=== PATIENT | male | born 1965 | race Caucasian/White ===

== ENCOUNTER → 2018-01-25 08:50 | Outpatient (CLI) | payer BC, SELFPAY ==
[2018-01-25 12:47] LABS: Absolute Lymphocyte Count 1.44 X10^3/ul (0.83-4.51); Absolute Neutrophil Count 2.7 X10^3/uL (2.0-7.7); Basophil# 0.01 X10^3/uL; Basophil% 0.2 % (0-1); Eosinophil# 0.34 X10^3/uL; Eosinophils% 6.8 % (0-5); Hematocrit 49.7 % (40-54); Hemoglobin 16.9 g/dl (13.0-16.5); Lymphocyte # 1.44 X10^3/ul (4.0); Lymphocyte % 28.8 % (19-41); Mean Corpuscular Hgb 32.6 pg (27.0-32.0); Mean Corpuscular Volume 95.9 fL (80-94); Monocyte# 0.51 X10^3/uL; Monocyte% 10.2 % (0-10); Neutrophil # 2.69 X10^3/uL (2.7-7.7); Neutrophil % 53.8 % (47-70); POSITIVE COUNT NO; POSITIVE DIFFERENTIAL NO; POSITIVE MORPHOLOGY NO; Platelet Count 145 K/mm3 (150-450); RBC Distribution Width CV 13.4 % (11.6-14.6); RBC Distribution Width SD 46.7 fl (35.1-43.9); Red Blood Count 5.18 M/mm3 (4.6-6.2)
[2018-01-25 13:11] LABS: ALB/GLOB Ratio 1.3 RATIO (0.9-2.4); AST(SGOT) 44 U/L (15-37); Alanine Aminotransfer ALT/SGPT 60 U/L (16-61); Albumin, Serum 3.9 g/dL (3.2-5.0); Alkaline Phosphatase 59 U/L (45-117); Anion Gap 9 (5-15); BUN 24 mg/dL (7-18); BUN/Creat Ratio 21.4 RATIO (10-20); Calcium,Total 8.9 mg/dL (8.5-10.1); Chloride 106 mmol/L (98-107); Creatinine, Serum 1.12 mg/dL (0.70-1.30); EST Glomerular Filtration Rate 72 mL/min (>60); Est Glom Filt Rate - Afr Amer 88 mL/min (>60); Glucose 96 mg/dL (74-106); Potassium 4.8 mmol/L (3.5-5.1); Protein, Total 6.9 g/dL (6.4-8.2); Sodium Level 140 mmol/L (136-145)
[2018-01-26 08:47] LABS: Hep C Antibodies <0.1 s/co ratio (0.0-0.9)
== END ==
PROVIDERS: Family Provider Family Medicine Geriatric Medicine; PCP Family Medicine Geriatric Medicine; Visit Provider Family Medicine Geriatric Medicine
DX: E23.6 Other disorders of pituitary gland (principal); R53.83 Other fatigue; Z12.5 Encounter for screening for malignant neoplasm of prostate; Z13.89 Encounter for screening for other disorder
CPT/HCPCS: 36415; 80053; 84403; 84443; 85025; 86803

== ENCOUNTER → 2019-02-21 | Outpatient (CLI) | payer BC, SELFPAY ==
[2018-08-15 12:12] VITALS: BMI 28.7
[2019-02-21 12:49] LABS: Absolute Lymphocyte Count 1.03 X10^3/uL (0.83-4.51); Absolute Neutrophil Count 2.5 X10^3/uL (2.0-7.7); Basophil# 0.04 X10^3/uL; Basophil% 0.9 % (0-1); Eosinophil# 0.31 X10^3/uL; Eosinophils% 7.2 % (0-5); Hematocrit 49.4 % (40-54); Lymphocyte # 1.03 X10^3/ul (4.0); Mean Corp Hgb Conc 34.4 g/dL (32-36); Mean Corpuscular Hgb 33.3 pg (27.0-32.0); Mean Corpuscular Volume 96.7 fL (80-94); Mean Platelet Vol. 10.9 fl (6.2-12.0); Monocyte# 0.42 X10^3/uL; Monocyte% 9.8 % (0-10); NRBC Flagged by Analyzer 0 % (0-5); Neutrophil # 2.48 X10^3/uL (2.7-7.7); Neutrophil % 57.9 % (47-70); Platelet Count 153 K/mm3 (150-450); RBC Distribution Width CV 13.3 % (11.6-14.6); RBC Distribution Width SD 47.8 fl (35.1-43.9); Red Blood Count 5.11 M/mm3 (4.6-6.2); White Blood Count 4.3 K/mm3 (4.4-11.0)
[2019-02-21 13:09] LABS: ALB/GLOB Ratio 1.4 RATIO (0.9-2.4); AST(SGOT) 63 U/L (15-37); Alanine Aminotransfer ALT/SGPT 67 U/L (16-61); Albumin, Serum 3.9 g/dL (3.2-5.0); Alkaline Phosphatase 55 U/L (45-117); Anion Gap 6 (5-15); BUN 21 mg/dL (7-18); BUN/Creat Ratio 23.6 RATIO (10-20); Calcium,Total 9.2 mg/dL (8.5-10.1); Chloride 109 mmol/L (98-107); Creatinine, Serum 0.89 mg/dL (0.70-1.30); EST Glomerular Filtration Rate 94 mL/min (>60); Est Glom Filt Rate - Afr Amer 114 mL/min (>60); Globulin 2.7 g/dL (2.2-4.2); Glucose 118 mg/dL (74-106); PSA,Total - Annual Screen 1.65 ng/mL (0.00-4.00); Potassium 4.3 mmol/L (3.5-5.1); Protein, Total 6.6 g/dL (6.4-8.2); Sodium Level 139 mmol/L (136-145); Thyroid Stim Hormone (TSH) 2.44 uIU/mL (0.358-3.74)
== END | disposition home or self-care (01) ==
LOC: POLAB3 08:39
PROVIDERS: Family Provider Family Medicine Geriatric Medicine; PCP Family Medicine Geriatric Medicine; Visit Provider Family Medicine Geriatric Medicine
DX: F52.8 Other sexual dysfunction not due to a substance or known physiological condition (principal); R53.83 Other fatigue; Z12.5 Encounter for screening for malignant neoplasm of prostate
CPT/HCPCS: 36415; 80053; 84153; 84403; 84443; 85025; G0103

== ENCOUNTER → 2019-03-08 09:51 | Outpatient (CLI) | payer BC, SELFPAY ==
[2018-08-15 12:12] VITALS: BMI 28.7
--- NOTE | 2019-03-08 09:58 | US_ITS ---
HISTORY: RUQ PAIN/ elevated lft's TECHNIQUE: Nava scale and color doppler imaging was performed of the pancreas, liver, and gallbladder. COMPARISON: None FINDINGS: # of images incl. paperwork: 119 The liver is enlarged and coarse in echotexture.. No gallstones, gallbladder wall thickening or biliary dilatation. Gallbladder wall measures 3 mm. Common bile duct measures 4 mm. No tenderness upon insonation the gallbladder. Visualized pancreas is normal in appearance. Right kidney is normal in size and appearance. Visualized abdominal aorta has normal caliber. IVC is patent. Hepatopedal flow is present within the central portal vein. US/Abdomen Limited IMPRESSION: Normal Right upper quadrant ultrasound. at 0093 Reported and signed by: Edmar Mccrary MD Electronically Signed: Edmar Mccrary MD at 23:51 EDT Tel , Service support ,
== END ==
PROVIDERS: Family Provider Family Medicine Geriatric Medicine; PCP Family Medicine Geriatric Medicine; Referring Provider Family Medicine Geriatric Medicine; Visit Provider Family Medicine Geriatric Medicine
DX: R94.5 Abnormal results of liver function studies (principal)
CPT/HCPCS: 76705

== ENCOUNTER → 2019-04-04 | Outpatient (CLI) | payer BC, SELFPAY ==
[2018-08-15 12:12] VITALS: BMI 28.7
[2019-04-04 18:29] LABS: ALB/GLOB Ratio 1.5 RATIO (0.9-2.4); AST(SGOT) 95 U/L (15-37); Alanine Aminotransfer ALT/SGPT 83 U/L (16-61); Albumin, Serum 3.7 g/dL (3.2-5.0); Alkaline Phosphatase 48 U/L (45-117); Anion Gap 9 (5-15); BUN 18 mg/dL (7-18); BUN/Creat Ratio 22.4 RATIO (10-20); Calcium,Total 8.7 mg/dL (8.5-10.1); Chloride 109 mmol/L (98-107); EST Glomerular Filtration Rate 106 mL/min (>60); Est Glom Filt Rate - Afr Amer 128 mL/min (>60); Globulin 2.5 g/dL (2.2-4.2); Glucose 87 mg/dL (74-106); Protein, Total 6.2 g/dL (6.4-8.2); Sodium Level 144 mmol/L (136-145)
== END | disposition home or self-care (01) ==
LOC: LAB.FUTURE 13:25
PROVIDERS: Family Provider Family Medicine Geriatric Medicine; PCP Family Medicine Geriatric Medicine; Visit Provider Family Medicine Geriatric Medicine
DX: R74.8 Abnormal levels of other serum enzymes (principal)
CPT/HCPCS: 36415; 80053

== ENCOUNTER → 2020-02-27 | Outpatient (CLI) | payer BC, SELFPAY ==
[2018-08-15 12:12] VITALS: BMI 28.7
[2020-02-27 12:42] LABS: Absolute Lymphocyte Count 1.23 X10^3/uL (0.83-4.51); Absolute Neutrophil Count 3.7 X10^3/uL (2.0-7.7); Basophil# 0.03 X10^3/uL; Basophil% 0.5 % (0-1); Eosinophils% 3.5 % (0-5); Hematocrit 49.3 % (40-54); Hemoglobin 16.7 g/dL (13.0-16.5); Lymphocyte # 1.23 X10^3/ul (4.0); Lymphocyte % 21.5 % (19-41); Mean Corp Hgb Conc 33.9 g/dL (32-36); Mean Corpuscular Volume 97.4 fL (80-94); Mean Platelet Vol. 10.7 fl (6.2-12.0); Monocyte# 0.56 X10^3/uL; Monocyte% 9.8 % (0-10); NRBC Flagged by Analyzer 0 % (0-5); Neutrophil # 3.68 X10^3/uL (2.7-7.7); Neutrophil % 64.4 % (47-70); Platelet Count 176 K/mm3 (150-450); RBC Distribution Width CV 14.3 % (11.6-14.6); RBC Distribution Width SD 50.8 fl (35.1-43.9); Red Blood Count 5.06 M/mm3 (4.6-6.2); White Blood Count 5.7 K/mm3 (4.4-11.0)
[2020-02-27 13:17] LABS: ALB/GLOB Ratio 1.4 RATIO (0.9-2.4); AST(SGOT) 78 U/L (15-37); Alanine Aminotransfer ALT/SGPT 85 U/L (16-61); Albumin, Serum 3.8 g/dL (3.2-5.0); Alkaline Phosphatase 54 U/L (45-117); Anion Gap 4 (5-15); BUN 19 mg/dL (7-18); BUN/Creat Ratio 23.1 RATIO (10-20); Calcium,Total 8.8 mg/dL (8.5-10.1); Chloride 108 mmol/L (98-107); Creatinine, Serum 0.82 mg/dL (0.70-1.30); EST Glomerular Filtration Rate 103 mL/min (>60); Est Glom Filt Rate - Afr Amer 124 mL/min (>60); Globulin 2.8 g/dL (2.2-4.2); Glucose 108 mg/dL (74-106); PSA,Total - Annual Screen 1.69 ng/mL (0.00-4.00); Potassium 4.4 mmol/L (3.5-5.1); Protein, Total 6.6 g/dL (6.4-8.2); Sodium Level 138 mmol/L (136-145); Thyroid Stim Hormone (TSH) 2.42 uIU/mL (0.358-3.74)
== END | disposition home or self-care (01) ==
LOC: POLAB3 09:06
PROVIDERS: PCP Family Medicine Geriatric Medicine; Visit Provider Family Medicine Geriatric Medicine
DX: E23.6 Other disorders of pituitary gland (principal); R53.83 Other fatigue; Z12.5 Encounter for screening for malignant neoplasm of prostate
CPT/HCPCS: 36415; 80053; 84153; 84403; 84443; 85025; G0103

== ENCOUNTER → 2021-03-04 09:18 | Outpatient (CLI) | payer BC, SELFPAY ==
[2018-08-15 12:12] VITALS: BMI 28.7
[2021-03-04 11:10] LABS: Absolute Lymphocyte Count 1.12 X10^3/uL (0.83-4.51); Basophil# 0.03 X10^3/uL; Basophil% 0.6 % (0-1); Eosinophil# 0.09 X10^3/uL; Eosinophils% 1.9 % (0-5); Hematocrit 45.6 % (40-54); Hemoglobin 15.6 g/dL (13.0-16.5); Lymphocyte # 1.12 X10^3/ul (0.83-4.51); Lymphocyte % 23.7 % (19-41); Mean Corp Hgb Conc 34.2 g/dL (32-36); Mean Corpuscular Hgb 33.3 pg (27.0-32.0); Mean Corpuscular Volume 97.2 fL (80-94); Mean Platelet Vol. 10.3 fl (6.2-12.0); Monocyte# 0.47 X10^3/uL; NRBC Flagged by Analyzer 0 % (0-5); Neutrophil # 2.99 X10^3/uL (2.7-7.7); Neutrophil % 63.4 % (47-70); Platelet Count 159 K/mm3 (150-450); RBC Distribution Width CV 16.2 % (11.6-14.6); RBC Distribution Width SD 57.9 fl (35.1-43.9); Red Blood Count 4.69 M/mm3 (4.6-6.2); White Blood Count 4.7 K/mm3 (4.4-11.0)
[2021-03-04 11:23] LABS: ALB/GLOB Ratio 1.3 RATIO (0.9-2.4); AST(SGOT) 65 U/L (15-37); Alanine Aminotransfer ALT/SGPT 72 U/L (16-61); Albumin, Serum 3.6 g/dL (3.2-5.0); Alkaline Phosphatase 54 U/L (45-117); Anion Gap 9 (5-15); BUN 20 mg/dL (7-18); BUN/Creat Ratio 26.3 RATIO (10-20); Calcium,Total 8.9 mg/dL (8.5-10.1); Chloride 107 mmol/L (98-107); Creatinine, Serum 0.76 mg/dL (0.70-1.30); EST Glomerular Filtration Rate 112 mL/min (>60); Est Glom Filt Rate - Afr Amer 136 mL/min (>60); Globulin 2.8 g/dL (2.2-4.2); Glucose 110 mg/dL (74-106); PSA,Total - Annual Screen 1.47 ng/mL (0.00-4.00); Potassium 4.2 mmol/L (3.5-5.1); Protein, Total 6.4 g/dL (6.4-8.2); Sodium Level 140 mmol/L (136-145); Thyroid Stim Hormone (TSH) 1.55 uIU/mL (0.358-3.74)
== END ==
PROVIDERS: PCP Family Medicine Geriatric Medicine; Visit Provider Family Medicine Geriatric Medicine
DX: E23.6 Other disorders of pituitary gland (principal); R53.83 Other fatigue; Z12.5 Encounter for screening for malignant neoplasm of prostate
CPT/HCPCS: 36415; 80053; 84153; 84403; 84443; 85025; G0103

== ENCOUNTER → 2021-03-16 11:22 | Outpatient (CLI) | payer BC, SELFPAY ==
[2018-08-15 12:12] VITALS: BMI 28.7
[2021-03-16 13:51] LABS: ALB/GLOB Ratio 1.2 RATIO (0.9-2.4); AST(SGOT) 65 U/L (15-37); Alanine Aminotransfer ALT/SGPT 68 U/L (16-61); Albumin, Serum 3.5 g/dL (3.2-5.0); Alkaline Phosphatase 50 U/L (45-117); Anion Gap 6 (5-15); BUN 17 mg/dL (7-18); BUN/Creat Ratio 20.6 RATIO (10-20); Chloride 109 mmol/L (98-107); Creatinine, Serum 0.83 mg/dL (0.70-1.30); EST Glomerular Filtration Rate 102 mL/min (>60); Est Glom Filt Rate - Afr Amer 123 mL/min (>60); Globulin 2.9 g/dL (2.2-4.2); Glucose 95 mg/dL (74-106); Protein, Total 6.4 g/dL (6.4-8.2); Sodium Level 140 mmol/L (136-145)
== END ==
PROVIDERS: PCP Family Medicine Geriatric Medicine; Referring Provider Family Medicine Geriatric Medicine; Visit Provider Family Medicine Geriatric Medicine
DX: R74.8 Abnormal levels of other serum enzymes (principal)
CPT/HCPCS: 36415; 80053

== ENCOUNTER → 2021-04-22 10:48 | Outpatient (CLI) | payer BC, SELFPAY ==
--- NOTE | 2021-04-22 11:00 | RAD_ITS ---
STUDY: X-RAY - LEFT ANKLE REASON FOR EXAM: Male, 56 years old. ANKLE PAIN TECHNIQUE: 3 view(s) of the ankle. COMPARISON: None. FINDINGS: Normal visualized distal tibia and fibula. Normal medial and lateral malleoli. Normal tibiotalar articulation and ankle mortise. Normal visualized talus and calcaneus. The visualized subtalar, talonavicular, calcaneocuboid and tarsal articulations are normal. Soft tissue swelling. RAD/Ankle min 3 Views IMPRESSION: Soft tissue swelling. Electronically Signed: Mendoza Rutherford MD at 11:56 EDT , Service support ,
== END ==
PROVIDERS: PCP Family Medicine Geriatric Medicine; Referring Provider Family Medicine Geriatric Medicine; Visit Provider Family Medicine Geriatric Medicine
DX: M25.572 Pain in left ankle and joints of left foot (principal)
CPT/HCPCS: 73610

== ENCOUNTER → 2022-03-10 | Outpatient (CLI) | payer BC, SELFPAY ==
[2022-03-10 10:38] LABS: Absolute Lymphocyte Count 1.31 X10^3/uL (0.83-4.51); Absolute Neutrophil Count 2.6 X10^3/uL (2.0-7.7); Basophil# 0.04 X10^3/uL; Basophil% 0.8 % (0-1); Eosinophil# 0.14 X10^3/uL; Hemoglobin 14.2 g/dL (13.0-16.5); Lymphocyte # 1.31 X10^3/ul (0.83-4.51); Lymphocyte % 27.7 % (19-41); Mean Corp Hgb Conc 34.6 g/dL (32-36); Mean Corpuscular Hgb 32.9 pg (27.0-32.0); Mean Corpuscular Volume 95.1 fL (80-94); Mean Platelet Vol. 10.3 fl (6.2-12.0); Monocyte# 0.58 X10^3/uL; Monocyte% 12.3 % (0-10); NRBC Flagged by Analyzer 0 % (0-5); Neutrophil # 2.64 X10^3/uL (2.7-7.7); Neutrophil % 55.8 % (47-70); Platelet Count 143 K/mm3 (150-450); RBC Distribution Width CV 12.9 % (11.6-14.6); RBC Distribution Width SD 45.2 fl (35.1-43.9); Red Blood Count 4.31 M/mm3 (4.6-6.2); White Blood Count 4.7 K/mm3 (4.4-11.0)
[2022-03-10 11:28] LABS: ALB/GLOB Ratio 1.1 RATIO (0.9-2.4); AST(SGOT) 50 U/L (15-37); Alanine Aminotransfer ALT/SGPT 71 U/L (16-61); Albumin, Serum 3.4 g/dL (3.2-5.0); Alkaline Phosphatase 56 U/L (45-117); Anion Gap 5 (5-15); BUN 29 mg/dL (7-18); BUN/Creat Ratio 25.2 RATIO (10-20); Calcium,Total 9.2 mg/dL (8.5-10.1); Chloride 107 mmol/L (98-107); Creatinine, Serum 1.15 mg/dL (0.70-1.30); EST Glomerular Filtration Rate 69 mL/min (>60); Est Glom Filt Rate - Afr Amer 84 mL/min (>60); Glucose 110 mg/dL (74-106); PSA,Total - Annual Screen 0.19 ng/mL (0.00-4.00); Potassium 4.9 mmol/L (3.5-5.1); Protein, Total 6.4 g/dL (6.4-8.2); Sodium Level 139 mmol/L (136-145); Thyroid Stim Hormone (TSH) 2.48 uIU/mL (0.358-3.74)
== END | disposition home or self-care (01) ==
LOC: LAB 09:51
PROVIDERS: PCP Family Medicine Geriatric Medicine; Visit Provider Family Medicine Geriatric Medicine
DX: E23.6 Other disorders of pituitary gland (principal); R53.83 Other fatigue; Z12.5 Encounter for screening for malignant neoplasm of prostate
CPT/HCPCS: 36415; 80053; 84153; 84403; 84443; 85025; G0103

== ENCOUNTER → 2023-03-23 | Outpatient (CLI) | payer BC, SELFPAY ==
[2023-03-23 12:37] LABS: Absolute Lymphocyte Count 1.11 X10^3/uL (0.83-4.51); Absolute Neutrophil Count 2.3 X10^3/uL (2.0-7.7); Basophil# 0.03 X10^3/uL; Basophil% 0.7 % (0-1); Eosinophils% 2.5 % (0-5); Hematocrit 39.3 % (40-54); Lymphocyte # 1.11 X10^3/ul (0.83-4.51); Lymphocyte % 27.3 % (19-41); Mean Corp Hgb Conc 33.1 g/dL (32-36); Mean Corpuscular Hgb 32.1 pg (27.0-32.0); Mean Platelet Vol. 10.5 fl (6.2-12.0); Monocyte# 0.47 X10^3/uL; Monocyte% 11.6 % (0-10); NRBC Flagged by Analyzer 0 % (0-5); Neutrophil # 2.33 X10^3/uL (2.7-7.7); Neutrophil % 57.4 % (47-70); Platelet Count 175 K/mm3 (150-450); RBC Distribution Width CV 14.5 % (11.6-14.6); Red Blood Count 4.05 M/mm3 (4.6-6.2); White Blood Count 4.1 K/mm3 (4.4-11.0)
[2023-03-23 13:12] LABS: ALB/GLOB Ratio 1.1 RATIO (0.9-2.4); AST(SGOT) 45 U/L (15-37); Alanine Aminotransfer ALT/SGPT 63 U/L (16-61); Albumin, Serum 3.4 g/dL (3.2-5.0); Alkaline Phosphatase 63 U/L (45-117); Anion Gap 7 (5-15); BUN 22 mg/dL (7-18); BUN/Creat Ratio 30.6 RATIO (10-20); Calcium,Total 9.5 mg/dL (8.5-10.1); Chloride 110 mmol/L (98-107); Creatinine, Serum 0.72 mg/dL (0.70-1.30); EST Glomerular Filtration Rate 119 mL/min (>60); Est Glom Filt Rate - Afr Amer 144 mL/min (>60); Glucose 127 mg/dL (74-106); PSA,Total - Annual Screen 0.29 ng/mL (0.00-4.00); Potassium 4.6 mmol/L (3.5-5.1); Protein, Total 6.4 g/dL (6.4-8.2); Sodium Level 140 mmol/L (136-145); Thyroid Stim Hormone (TSH) 2.46 uIU/mL (0.358-3.74)
== END | disposition home or self-care (01) ==
PROVIDERS: PCP Family Medicine Geriatric Medicine; Visit Provider Family Medicine Geriatric Medicine
DX: R53.83 Other fatigue (principal); Z12.5 Encounter for screening for malignant neoplasm of prostate
CPT/HCPCS: 36415; 80053; 84153; 84403; 84443; 85025; G0103

== ENCOUNTER → 2023-05-22 | Outpatient (CLI) | payer BC, SELFPAY ==
--- NOTE | 2023-05-22 17:15 | RAD_ITS ---
EXAM: XR CERVICAL SPINE, 2 OR 3 VIEWS CLINICAL INDICATION: MUSCLE SPASM MUSCLE SPASM TECHNIQUE: Frontal and lateral views of the cervical spine. COMPARISON: No relevant prior studies available. 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 There is multilevel spondylosis. Preserved vertebral body height. No acute fracture. Preservation of the normal cervical lordosis. DISC SPACES: There is disc space narrowing at the C6-7 and C7-T1 levels. SOFT TISSUES: Unremarkable. No prevertebral soft tissue widening. LUNG APICES: Clear. RAD/Cerv Spine 2 or 3 Views IMPRESSION: Multilevel degenerative changes. Electronically Signed: Boni Luna MD at 6:57 EDT Reading Location ID and State: [facility] / [place] , Service support ,
== END | disposition home or self-care (01) ==
PROVIDERS: PCP Family Medicine Geriatric Medicine; Referring Provider Family Medicine Geriatric Medicine; Visit Provider Family Medicine Geriatric Medicine
DX: M62.838 Other muscle spasm (principal)
CPT/HCPCS: 72040

== ENCOUNTER → 2024-03-28 | Outpatient (CLI) | payer BC, SELFPAY ==
[2024-03-28 10:38] LABS: Absolute Lymphocyte Count 1.29 X10^3/uL (0.83-4.51); Absolute Neutrophil Count 2.5 X10^3/uL (2.0-7.7); Basophil# 0.04 X10^3/uL; Basophil% 0.9 % (0-1); Eosinophil# 0.12 X10^3/uL; Eosinophils% 2.7 % (0-5); Hematocrit 39.5 % (40-54); Hemoglobin 13.2 g/dL (13.0-16.5); Lymphocyte # 1.29 X10^3/ul (0.83-4.51); Lymphocyte % 29.1 % (19-41); Mean Corp Hgb Conc 33.4 g/dL (32-36); Mean Corpuscular Hgb 30.9 pg (27.0-32.0); Mean Corpuscular Volume 92.5 fL (80-94); Mean Platelet Vol. 10.7 fl (6.2-12.0); Monocyte# 0.45 X10^3/uL; Monocyte% 10.2 % (0-10); NRBC Flagged by Analyzer 0 % (0-5); Neutrophil # 2.52 X10^3/uL (2.7-7.7); Neutrophil % 56.9 % (47-70); Platelet Count 167 K/mm3 (150-450); RBC Distribution Width SD 47.5 fl (35.1-43.9); Red Blood Count 4.27 M/mm3 (4.6-6.2); White Blood Count 4.4 K/mm3 (4.4-11.0)
[2024-03-28 11:14] LABS: ALB/GLOB Ratio 1.2 RATIO (0.9-2.4); AST(SGOT) 43 U/L (15-37); Alanine Aminotransfer ALT/SGPT 58 U/L (16-61); Albumin, Serum 3.7 g/dL (3.2-5.0); Alkaline Phosphatase 68 U/L (45-117); Anion Gap 4 (5-15); BUN 22 mg/dL (7-18); BUN/Creat Ratio 31.2 RATIO (10-20); Calcium,Total 9.7 mg/dL (8.5-10.1); Chloride 110 mmol/L (98-107); Creatinine, Serum 0.71 mg/dL (0.70-1.30); EST Glomerular Filtration Rate 121 mL/min (>60); Est Glom Filt Rate - Afr Amer 146 mL/min (>60); Glucose 115 mg/dL (74-106); PSA,Total - Annual Screen 0.35 ng/mL (0.00-4.00); Potassium 4.8 mmol/L (3.5-5.1); Protein, Total 6.7 g/dL (6.4-8.2); Sodium Level 141 mmol/L (136-145)
== END | disposition home or self-care (01) ==
LOC: POLAB3 09:44
PROVIDERS: PCP Family Medicine Geriatric Medicine; Visit Provider Family Medicine Geriatric Medicine
DX: Z12.5 Encounter for screening for malignant neoplasm of prostate (principal); R53.83 Other fatigue
CPT/HCPCS: 36415; 80053; 84153; 84443; 85025; G0103

== ENCOUNTER → 2025-04-01 | Outpatient (CLI) | payer BC, SELFPAY ==
[2025-04-01 10:25] LABS: Hematocrit 40.7 % (40-54); Hemoglobin 13.8 g/dL (13.0-16.5); Immature Granulocytes Count 0.030 X10^3/uL (0.0-0.0); Mean Corp Hgb Conc 33.9 g/dL (32-36); Mean Corpuscular Volume 92.5 fL (80-94); Mean Platelet Vol. 10.7 fl (6.2-12.0); NRBC Flagged by Analyzer 0 % (0-5); Platelet Count 170 K/mm3 (150-450); RBC Distribution Width CV 14.0 % (11.6-14.6); RBC Distribution Width SD 47.9 fl (35.1-43.9); Red Blood Count 4.40 M/mm3 (4.6-6.2); White Blood Count 5.3 K/mm3 (4.4-11.0)
[2025-04-01 10:53] LABS: AST(SGOT) 48 U/L (<=37); Alanine Aminotransfer ALT/SGPT 53 U/L (<=46); Albumin, Serum 4.6 g/dL (3.4-4.8); Alkaline Phosphatase 71 U/L (40-129); Anion Gap 10 (5-15); BUN 21 mg/dL (4-19); BUN/Creat Ratio 30.8 RATIO (10-20); Calcium,Total 10.1 mg/dL (7.6-11.0); Carbon Dioxide 25.1 mmol/L (21.0-32.0); Chloride 105 mmol/L (98-108); Globulin 2.4 g/dL (2.2-4.2); Glucose 120 mg/dL (70-99); PSA,Total - Annual Screen 0.43 ng/mL (0.02-4.00); Potassium 5.5 mmol/L (3.3-5.1)
--- OUTSIDE RECORDS SUMMARY | 2025-04-01 16:27 | XMS RPT_ITS | CCD ---
Author Organization [facility] Care Team Providers Care L[facility] Name Role Phone SHAAN SWAN Primary Care Unavailable DIULUS BETY DELATORRE Referring Unavailable DIULUS III, BETY Attending Unavailable Shaan Swan MD Primary Care Provider Dontrell Swan Chi Primary Care Unavailable Beny, Dontrell Chi Attending Unavailable Beny Dontrell Castillo Referring Unavailable Beny Dontrell Chi Attending Unavailable Beny Dontrell Chi Primary Care Unavailable Medications Current Medications Medication Drug Class(es) Dates Sig (Normalized) Sig (Original) cephalexin 500 mg oral capsule (3 sources) Cephalosporin Antibacterial Start: 08-15-2018 take 500 mg by mouth three times daily Cephalexin Active 500 MG PO THREE TIMES A DAY August 15, 2018 1:00am Creatine (3 sources) Start: 06-11-2014 Creatine Monohydrate (Bulk) Active 500 GM MC DAILY June 11, 2014 1:00am Multivitamin With Folic Acid (3 sources) Start: 06-11-2014 take 1 tablet by mouth once daily Multivitamin With Folic Acid Active 1 TABLET PO DAILY June 11, 2014 1:00am pravastatin sodium 40 mg oral tablet (3 sources) HMG-CoA Reductase Inhibitor Start: 06-11-2014 take 40 mg by mouth at bedtime Pravastatin Active 40 MG PO AT BEDTIME June 11, 2014 1:00am Completed/Discontinued Medications Medication Drug Class(es) Dates Sig (Normalized) Sig (Original) technetium Tc-99m sulfur colloid filtered injection 1.1 millicurie (2 sources) Start: 01-30-2024 End: 01-30-2024 1.1 millicurie, SubCUTAneous, IMG once PRN, once, Starting on Mon01/30/24 at 0837, For 1 dose Problems Active Problems Problem Classification Problem Date Documented Da te Episodic/Chronic Melanomas of skin (4 sources) Malignant melanoma of skin, unspecified; Translations: [Malignant melanoma] Onset: 01-30-2024 Chronic Open wounds of head; neck; and trunk (3 sources) Laceration of left eyebrow; Translations: [Laceration without foreign body of left eyelid and periocular area, initial encounter] 08-15-2018 Episodic Other screening for suspected conditions (not mental disorders or infectious disease) (1 source) Encounter for screening for malignant neoplasm of prostate; Translations: [Encounter for screening for malignant neoplasm of prostate] Onset: 04-08-2024 Episodic Past or Other Problems Problem Classification Problem Date Documented Da te Episodic/Chronic Other connective tissue disease (1 source) Other muscle spasm; Translations: [Other muscle spasm] Onset: 05-28-2023 Episodic Results Test Name Value Interpretation Reference Range Facility CBC W/Diff, Automatedon 03-01 Absolute Lymph 1.29 X10 3/uL Normal 0.83-4.51 [facility] Comment on above: Performed By: #### L 100.0100, L501.9910, L500.4050, L501.9520 #### [facility] [address] [place], [address] Absolute Neut 2.5 X10 3/uL Normal 2.0-7.7 [facility] Comment on above: Performed By: #### L 100.0100, L501.9910, L500.4050, L501.9520 #### [facility] [address] [place], [address] Basophils/100 WBC (Bld) 0.9 % Normal 0-1 [facility] Comment on above: Performed By: #### L 100.0100, L501.9910, L500.4050, L501.9520 #### [facility] [address] [place], [address] Eosinophils/100 WBC (Bld) 2.7 % Normal 0-5 [facility] Comment on above: Performed By: #### L 100.0100, L501.9910, L500.4050, [id number] #### [facility] [address] [place], [address] Erythrocyte distribution width (RBC) [Ratio] 14.0 % Normal 11.6-14.6 [facility] Comment on above: Performed By: #### L 100.0100, L501.9910, L500.4050, L501.9520 #### [facility] [address] [place], [address] Hematocrit (Bld) [Volume fraction] 39.5 % Low 40-54 [facility] Comment on above: Performed By: #### L 100.0100, L501.9910, L500.4050, [id number] #### [facility] [address] [place], [address] Hemoglobin (Bld) [Mass/Vol] 13.2 g/dL Normal 13.0-16.5 [facility] Comment on above: Performed By: #### L 100.0100, L501.9910, L500.4050, L501.9520 #### [facility] [address] [place], [address] IG% 0.200 Normal 0.0-0.9 [facility] Comment on above: Result Comment: IG% - Immature Granulocytes (promyelocytes, myelocytes and metamyelocytes) > 1% indicates that a LEFT SHIFT is Present. Performed By: #### L 100.0100, L501.9910, L500.4050, L501.9520 #### [facility] [address] [place], [address] Lymphocytes/100 WBC (Bld) 29.1 % Normal 19-41 [facility] Comment on above: Performed By: #### L 100.0100, L501.9910, L500.4050, L501.9520 #### [facility] [address] [place], [address] MCH (RBC) [Entitic mass] 30.9 pg Normal 27.0-32.0 [facility] Comment on above: Performed By: #### L 100.0100, L501.9910, L500.4050, L501.9520 #### [facility] [address] [place], [address] MCHC (RBC) [Mass/Vol] 33.4 g/dL Normal 32-36 [facility] Comment on above: Performed By: #### L 100.0100, L501.9910, L500.4050, L501.9520 #### [facility] [address] [place], [address] MCV (RBC) [Entitic vol] 92.5 fL Normal 80-94 [facility] Comment on above: Performed By: #### L 100.0100, L501.9910, L500.4050, L501.9520 #### [facility] [address] [place], [address] Monocytes/100 WBC (Bld) 10.2 % High 0-10 [facility] Comment on above: Performed By: #### L 100.0100, L501.9910, L500.4050, L501.9520 #### [facility] [address] [place], [address] Neutrophils/100 WBC (Bld) 56.9 % Normal 47-70 [facility] Comment on above: Performed By: #### L 100.0100, L501.9910, L500.4050, L501.9520 #### [facility] [address] [place], [address] Nucleated RBC (Bld) [#/Vol] 0 10*3/uL Normal 0-5 [facility] Comment on above: Performed By: #### L 100.0100, L501.9910, L500.4050, L501.9520 #### [facility] [address] [place] [place], [address] Platelet mean volume (Bld) [Entitic vol] 10.7 fL Normal 6.2-12.0 [facility] Comment on above: Performed By: #### L 100.0100, L501.9910, L500.4050, L501.9520 #### [facility] [address] [place], [address] Platelets (Bld) [#/Vol] 167 10*3/uL Normal 150-450 [facility] Comment on above: Performed By: #### L 100.0100, L501.9910, L500.4050, L501.9520 #### [facility] [address] [place], [address] RBC (Bld) [#/Vol] 4.27 10*6/uL Low 4.6-6.2 [facility] Comment on above: Performed By: #### L 100.0100, L501.9910, L500.4050, L501.9520 #### [facility] [address] [place], [address] RDW SD 47.5 fl High 35.1-43.9 [facility] Comment on above: Performed By: #### L 100.0100, L501.9910, L500.4050, L501.9520 #### [facility] [address] [place], [address] WBC (Bld) [#/Vol] 4.4 10*3/uL Normal 4.4-11.0 [facility] Comment on above: Performed By: #### L 100.0100, L501.9910, L500.4050, L501.9520 #### [facility] [address] [place], [address] [facility] 03-28-2024 Albumin [Mass/Vol] 3.7 g/dL Normal 3.2-5.0 [facility] Comment on above: Performed By: #### L 100.0100, L501.9910, L500.4050, L501.9520 #### [facility] [address] [place], [address] Albumin/Globulin [Mass ratio] 1.2 {ratio} Normal 0.9-2.4 [facility] Comment on above: Performed By: #### L 100.0100, L501.9910, L500.4050, L501.9520 #### [facility] [address] [place], [address] ALK P 68 U/L Normal 45-117 [facility] Comment on above: Performed By: #### L 100.0100, L501.9910, L500.4050, L501.9520 #### [facility] [address] [place], [address] ALT [Catalytic activity/Vol] 58 U/L Normal 16-61 [facility] Comment on above: Performed By: #### L 100.0100, L501.9910, L500.4050, L501.9520 #### [facility] [address] [place], [address] AST [Catalytic activity/Vol] 43 U/L High 15-37 [facility] Comment on above: Performed By: #### L 100.0100, L501.9910, L500.4050, L501.9520 #### [facility] [address] [place], [address] Bilirubin [Mass/Vol] 1.10 mg/dL High 0.20-1.00 [facility] Comment on above: Result Comment: For patients on eltrombopag therapy, use of Dimension [place] TBIL is not recommended. Performed By: #### L 100.0100, L501.9910, L500.4050, L501.9520 #### [facility] [address] [place], [address] BUN/CRE 31.2 RATIO High 10-20 [facility] Comment on above: Performed By: #### L 100.0100, L501.9910, L500.4050, L501.9520 #### [facility] [address] [place], [address] CA,Total 9.7 mg/dL Normal 8.5-10.1 [facility] Comment on above: Performed By: #### L 100.0100, L501.9910, L500.4050, L501.9520 #### [facility] [address] [place], [address] Chloride [Moles/Vol] 110 mmol/L High 98-107 [facility] Comment on above: Performed By: #### L 100.0100, L501.9910, L500.4050, L501.9520 #### [facility] [address] [place], [address] CO2 [Moles/Vol] 27.0 mmol/L Normal 21.0-32.0 [facility] Comment on above: Performed By: #### L 100.0100, L501.9910, L500.4050, L501.9520 #### [facility] [address] [place], [address] Creatinine [Mass/Vol] 0.71 mg/dL Normal 0.70-1.30 [facility] Comment on above: Result Comment: The validity of the calculated GFR GFRAA in patients over 70 years has not been determined. Clinical correlation is essential. Performed By: #### L 100.0100, L501.9910, L500.4050, L501.9520 #### [facility] [address] [place], [address] EST GFR - AA 146 mL/min Normal >60 [facility] Comment on above: Result Comment: Afri can Palestinian GFR Calc Performed By: #### L 100.0100, L501.9910, L500.4050, L501.9520 #### [facility] [address] [place], [address] GAP 4 Low 5-15 [facility] Comment on above: Performed By: #### L 100.0100, L501.9910, L500.4050, L501.9520 #### [facility] [address] [place], [address] GFR/1.73 sq M.predicted among non-blacks MDRD (S/P/Bld) [Vol rate/Area] 121 mL/min/{1.73_m2} Normal >60 [facility] Comment on above: Result Comment: Non- GFR Calc Performed By: #### L 100.0100, L501.9910, L500.4050, L501.9520 #### [facility] [address] [place], [address] Globulin (S) [Mass/Vol] 3.0 g/dL Normal 2.2-4.2 [facility] Comment on above: Performed By: #### L 100.0100, L501.9910, L500.4050, L501.9520 #### [facility] [address] [place], [address] Glucose [Mass/Vol] 115 mg/dL High 74-106 [facility] Comment on above: Result Comment: Fast ing Glucose result from 100 to 125 mg/dL suggests IMPAIRED HOMEOSTASIS per A.D.A. criteria. Performed By: #### L 100.0100, L501.9910, L500.4050, L501.9520 #### [facility] [address] [place], [address] Potassium [Moles/Vol] 4.8 mmol/L Normal 3.5-5.1 [facility] Comment on above: Performed By: #### L 100.0100, L501.9910, L500.4050, L501.9520 #### [facility] [address] [place], [address] Sodium [Moles/Vol] 141 mmol/L Normal 136-145 [facility] Comment on above: Performed By: #### L 100.0100, L501.9910, L500.4050, L501.9520 #### [facility] [address] [place], [address] T PROT 6.7 g/dL Normal 6.4-8.2 [facility] Comment on above: Performed By: #### L 100.0100, L501.9910, L500.4050, L501.9520 #### [facility] [address] [place], [address] Urea nitrogen [Mass/Vol] 22 mg/dL High 7-18 [facility] Comment on above: Performed By: #### L 100.0100, L501.9910, L500.4050, L501.9520 #### [facility] [address] [place], [address] PSA,Total - Annual Screenon 03-28-2024 PSA,TOT SCREEN 0.35 ng/mL Normal 0.00-4.00 [facility] Comment on above: Result Comment: This test was performed using the TPSA assay method for the [employer] chemistry system. Values obtained with different assay methods cannot be used interchangably. When changing PSA assays in the course of monitoring a patient, additional sequential testing should be carried out to confirm baseline values. Performed By: #### L 100.0100, L501.9910, L500.4050, L501.9520 #### [facility] [address] [place], [address] Thyroid Stim Hormone (TSH)on 03-28-2024 TSH 3.300 uIU/mL Normal 0.358-3.740 [facility] Comment on above: Performed By: #### L 100.0100, L501.9910, L500.4050, L501.9520 #### [facility] [address] [place], [address] NM Lymphatic vessels Views W radionuclide intra lymphaticon 01-30-2024 Impression: Lymphoscintigraphy for melanoma. Left axillary sentinel node. Report Dictated on Electronically Signed By: Tony Hendricks MD Electronically Signed Date/Time: 01/30/2024 10:56 AM EDT [facility] Patient Name: MARLENA VICENTE : 1965 Exam Date/Time: 01/30/2024 09:43 Procedure: NM LYMPHOSCINTIGRAM Ordering Provider: WHEAT III, LEWIS Reason For Exam: MALIGNANT MELANOMA Study: Lymphoscintigraphy. Clinical indication: Melanoma chest Dose: 1.1mCi Tc-99m microfiltered sulfur colloid intradermally Technique: Routine martine-tumoral injection was performed without incident with subsequent imaging including neck chest abdomen pelvis. FINDINGS: Hunter activity is visualized in the left axilla, somewhat anteriorly. The patient completed the exam in satisfactory condition. [facility] Tony Hendricsk MD - 01/30/2024 Patient Name: MARLENA VICENTE : 1965 Exam Date/Time: 01/30/2024 09:43 Procedure: NM LYMPHOSCINTIGRAM Ordering Provider: WHEAT III, LEWIS Reason For Exam: MALIGNANT MELANOMA Study: Lymphoscintigraphy. Clinical indication: Melanoma chest Dose: 1.1mCi Tc-99m microfiltered sulfur colloid intradermally Technique: Routine martine-tumoral injection was performed without incident with subsequent imaging including neck chest abdomen pelvis. FINDINGS: Hunter activity is visualized in the left axilla, somewhat anteriorly. The patient completed the exam in satisfactory condition. IMPRESSION: Impression: Lymphoscintigraphy for melanoma. Left axillary sentinel node. Report Dictated on Electronically Signed By: Tony Hendricks MD Electronically Signed Date/Time: 01/30/2024 10:56 AM EDT [facility] Radiology Study observation (narrative) [facility] NM Lymphatic vessels Views W radionuclide intra lymphaticOrdered By: Tony Hendricks on 01-30-2024 [facility] Work Phone: Cerv Spine 2 or 3 Viewson Cerv Spine 2 or 3 Views [facility] [address] [place] [address] Cerv Spine 2 or 3 Views MR#: [id number] Acct: [id number] Name: MARLENA VICENTE Rep #: [id number] : 1965 M 58 From: Boni orr MD PCP: Dr. Dontrell Swan MD Status: REG CLI Study: Cerv Spine 2 or 3 Views Date of Exam: 05/22/23 Exam# [id number] Ordering Dr: Dontrell Swan MD [id number] EXAM: XR CERVICAL SPINE, 2 OR 3 VIEWS CLINICAL INDICATION: MUSCLE SPASM MUSCLE SPASM TECHNIQUE: Frontal and lateral views of the cervical spine. COMPARISON: No relevant prior studies available. 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 There is multilevel spondylosis. Preserved vertebral body height. No acute fracture. Preservation of the normal cervical lordosis. DISC SPACES: There is disc space narrowing at the C6-7 and C7-T1 levels. SOFT TISSUES: Unremarkable. No prevertebral soft tissue widening. LUNG APICES: Clear. RAD/Cerv Spine 2 or 3 Views IMPRESSION: Multilevel degenerative changes. Electronically Signed: Boni Luna MD at 6:57 EDT , CC: Dr. Dontrell Swan MD Urban Sociologist: Signed Normal [facility] Absolute lymphocyte countOrd ered By: Dontrell Swan on 03-23-2023 Lymphocytes Auto (Unsp spec) [#/Vol] 1.11 10*3/uL 0.83-4.51 [facility] Basophil percentageOrdered B y: Dontrell Swan on 03-23-2023 Basophils/100 WBC (Bld) 0.7 % 0-1 [facility] Bilirubin [Mass/Vol] 0.70 mg/dL 0.20-1.00 [facility] Comment on above: For patients on eltr ombopag therapy, use of Dimension [place] TBIL is not recommended. Chloride [Moles/Vol] 110 mmol/L 98-107 [facility] Eosinophils/100 WBC (Bld) 2.5 % 0-5 [facility] Glucose [Mass/Vol] 127 mg/dL 74-106 [facility] Comment on above: Fasting Glucose resu lt greater than or equal to 126 mg/dL suggests DIABETES MELLITUS per A.D.A. criteria. Neutrophils (Bld) [#/Vol] 2.3 10*3/uL 2.0-7.7 [facility] Neutrophils/100 WBC (Bld) 57.4 % 47-70 [facility] Potassium [Moles/Vol] 4.6 mmol/L 3.5-5.1 [facility] Protein [Mass/Vol] 6.4 g/dL 6.4-8.2 [facility] Sodium [Moles/Vol] 140 mmol/L 136-145 [facility] Testosterone [Mass/Vol] 18.05 ng/dL [facility] Comment on above: CENTRAL 90% REFERENC E RANGES MALE AGE <50 197.44 - 669.58 ng/dL MALE AGE > or = 50 187.72 - 684.19 ng/dL FEMALE AGE <50 8.38 - 35.01 ng/dL FEMALE AGE > or = 50 <7.00 - 35.92 ng/dL Effective as of 02/23/21 WBC (Bld) [#/Vol] 4.1 10*3/uL 4.4-11.0 [facility] Blood erythrocytes count (nu mber/volume)Ordered By: Dontrell Swan on 03-23-2023 RBC (Bld) [#/Vol] 4.05 10*6/uL 4.6-6.2 [facility] Blood hemoglobin measurement (mass/volume)Ordered By: [facility] on 03-23-2023 Hemoglobin (Bld) [Mass/Vol] 13.0 g/dL 13.0-16.5 [facility] Blood lymphocytes/100 leukoc ytesOrdered By: [facility] on 03-23-2023 Lymphocytes/100 WBC (Bld) 27.3 % 19-41 [facility] Blood monocytes/100 leukocyt esOrdered By: [facility] on 03-23-2023 Monocytes/100 WBC (Bld) 11.6 % 0-10 [facility] Blood platelet mean volumeOr dered By: [facility] on 03-23-2023 Platelet mean volume (Bld) [Entitic vol] 10.5 fL 6.2-12.0 [facility] Determination of erythrocyte mean corpuscular volume (MCV)Ordered By: [facility] on 03-23-2023 MCV (RBC) [Entitic vol] 97.0 fL 80-94 [facility] Hematocrit Auto (Bld) [Volum e fraction]Ordered By: [facility] on 03-23-2023 Hematocrit (Bld) [Volume fraction] 39.3 % 40-54 [facility] Laboratory - Chemistry and C hemistry - challengeOrdered By: [facility] 03-23-2023 ALP [Catalytic activity/Vol] 63 U/L 45-117 [facility] ALT [Catalytic activity/Vol] 63 U/L 16-61 [facility] CO2 [Moles/Vol] 23.0 mmol/L 21.0-32.0 [facility] Globulin (S) [Mass/Vol] 3.0 g/dL 2.2-4.2 [facility] Urea nitrogen/Creatinine [Mass ratio] 30.6 mg/mg 10-20 [facility] Laboratory - Hematology and Cell countsOrdered By: [facility] 03-23-2023 Erythrocyte distribution width (RBC) [Entitic vol] 52.0 fL 35.1-43.9 [facility] Erythrocyte distribution width (RBC) [Ratio] 14.5 % 11.6-14.6 [facility] Immature granulocytes/100 WBC (Bld) 0.500 % 0.0-0.9 [facility] Comment on above: IG% - Immature Granu locytes (promyelocytes, myelocytes and metamyelocytes) > 1% indicates that a LEFT SHIFT is Present. MCH (RBC) [Entitic mass] 32.1 pg 27.0-32.0 [facility] Nucleated RBC/100 WBC (Bld) [Ratio] 0 % 0-5 [facility] MCHC Auto (RBC) [Mass/Vol]Or dered By: Dontrell Swan on 03-23-2023 MCHC (RBC) [Mass/Vol] 33.1 g/dL 32-36 [facility] No Panel InformationOrdered By: Dontrell Swan on 03-23-2023 Estimated GFR (MDRD) Amer 144 mL/min >60 [facility] Comment on above: GFR Calc Estimated GFR (MDRD) Non-Af Amer 119 mL/min >60 [facility] Comment on above: Non- GFR Calc Prostate Specific Antigen Screen 0.29 ng/mL 0.00-4.00 [facility] Comment on above: This test was perfor med using the TPSA assay method for the[employer] chemistry system. Values obtained with differentassay methods cannot be used interchangably.When changing PSA assays in the course of monitoring apatient, additional sequential testing should be carriedout to confirm baseline values. Thyroid Stimulating Hormone (TSH) 2.46 uIU/mL 0.358-3.74 [facility] Platelets bldOrdered By: Dontrell Swan on 03-23-2023 Platelets (Bld) [#/Vol] 175 10*3/uL 150-450 [facility] Serum or plasma albumin tima urement (mass/volume)Ordered By: Dontrell Swan on 03-23-2023 Albumin [Mass/Vol] 3.4 g/dL 3.2-5.0 [facility] Serum or plasma albumin/glob ulin mass ratioOrdered By: Dontrell Swan on 03-23-2023 Albumin/Globulin [Mass ratio] 1.1 {ratio} 0.9-2.4 [facility] Serum or plasma calcium tima urement (mass/volume)Ordered By: Dontrell Swan on 03-23-2023 Calcium [Mass/Vol] 9.5 mg/dL 8.5-10.1 [facility] Serum or plasma creatinine m easurement (mass/volume)Ordered By: Dontrell Swan on 03-23-2023 Creatinine [Mass/Vol] 0.72 mg/dL 0.70-1.30 [facility] Comment on above: The validity of the calculated GFR & GFRAA in patients over 70 years has not been determined. Clinical correlation is essential. Serum or plasma urea nitroge n measurement (mass/volume)Ordered By: Dontrell Swan on 03-23-2023 Urea nitrogen [Mass/Vol] 22 mg/dL 7- [facility] Thin prep Papanicolaou smear with manual screeningOrdered By: Dontrell Beny on 03-23-2023 Thin prep Papanicolaou smear with manual screening 45 U/L [facility] Thin prep Papanicolaou smear with manual screening 7 - [facility] Absolute lymphocyte counton 03-10-2022 Lymphocytes Auto (Unsp spec) [#/Vol] 1.31 10*3/uL 0.83-4.51 [facility] Work Phone: Basophil percentageon 2021 Basophils/100 WBC (Bld) 0.8 % 0-1 [facility] Work Phone: Bilirubin [Mass/Vol] 0.70 mg/dL 0.20-1.00 [facility] Work Phone: Comment on above: For patients on eltr ombopag therapy, use of Dimension [place] TBIL is not recommended. Chloride [Moles/Vol] 107 mmol/L 98-107 [facility] Work Phone: Eosinophils/100 WBC (Bld) 3.0 % 0-5 [facility] Work Phone: Glucose [Mass/Vol] 110 mg/dL 74-106 [facility] Work Phone: Comment on above: Fasting Glucose resu lt from 100 to 125 mg/dL suggests IMPAIRED HOMEOSTASIS per A.D.A. criteria. Neutrophils (Bld) [#/Vol] 2.6 10*3/uL 2.0-7.7 [facility] Work Phone: Neutrophils/100 WBC (Bld) 55.8 % 47-70 [facility] Work Phone: Potassium [Moles/Vol] 4.9 mmol/L 3.5-5.1 [facility] Work Phone: Protein [Mass/Vol] 6.4 g/dL 6.4-8.2 [facility] Work Phone: Sodium [Moles/Vol] 139 mmol/L 136-145 [facility] Work Phone: Testosterone [Mass/Vol] 325.97 ng/dL [facility] Work Phone: Comment on above: CENTRAL 90% REFERENC E RANGES MALE AGE <50 197.44 - 669.58 ng/dL MALE AGE > or = 50 187.72 - 684.19 ng/dL FEMALE AGE <50 8.38 - 35.01 ng/dL FEMALE AGE > or = 50 <7.00 - 35.92 ng/dL Effective as of 02/23/21 WBC (Bld) [#/Vol] 4.7 10*3/uL 4.4-11.0 [facility] Work Phone: Blood erythrocytes count (nu mber/volume)on 03-10-2022 RBC (Bld) [#/Vol] 4.31 10*6/uL 4.6-6.2 [facility] Work Phone: Blood hemoglobin measurement (mass/volume)on 03-10-2022 Hemoglobin (Bld) [Mass/Vol] 14.2 g/dL 13.0-16.5 [facility] Work Phone: Blood lymphocytes/100 leukoc yteson 03-10-2022 Lymphocytes/100 WBC (Bld) 27.7 % 19-41 [facility] Work Phone: Blood monocytes/100 leukocyt eson 03-10-2022 Monocytes/100 WBC (Bld) 12.3 % 0-10 [facility] Work Phone: Blood platelet mean volumeon 03-10-2022 Platelet mean volume (Bld) [Entitic vol] 10.3 fL 6.2-12.0 [facility] Work Phone: Determination of erythrocyte mean corpuscular volume (MCV)on 03-10-2022 MCV (RBC) [Entitic vol] 95.1 fL 80-94 [facility] Work Phone: Hematocrit Auto (Bld) [Volum e fraction]on 03-10-2022 Hematocrit (Bld) [Volume fraction] 41.0 % 40-54 [facility] Work Phone: Laboratory - Chemistry and C hemistry - challengeon 03-10-2022 ALP [Catalytic activity/Vol] 56 U/L 45-117 [facility] Work Phone: ALT [Catalytic activity/Vol] 71 U/L 16-61 [facility] Work Phone: [phone] CO2 [Moles/Vol] 27.0 mmol/L 21.0-32.0 [facility] Work Phone: Globulin (S) [Mass/Vol] 3.0 g/dL 2.2-4.2 [facility] Work Phone: Urea nitrogen/Creatinine [Mass ratio] 25.2 mg/mg 10-20 [facility] Work Phone: Laboratory - Hematology and Cell countson 03-10-2022 Erythrocyte distribution width (RBC) [Entitic vol] 45.2 fL 35.1-43.9 [facility] Work Phone: Erythrocyte distribution width (RBC) [Ratio] 12.9 % 11.6-14.6 [facility] Work Phone: Immature granulocytes/100 WBC (Bld) 0.400 % 0.0-0.9 [facility] Work Phone: [phone] Comment on above: IG% - Immature Granu locytes (promyelocytes, myelocytes and metamyelocytes) > 1% indicates that a LEFT SHIFT is Present. MCH (RBC) [Entitic mass] 32.9 pg 27.0-32.0 [facility] Work Phone: Nucleated RBC/100 WBC (Bld) [Ratio] 0 % 0-5 [facility] Work Phone: MCHC Auto (RBC) [Mass/Vol]on 03-10-2022 MCHC (RBC) [Mass/Vol] 34.6 g/dL 32-36 [facility] Work Phone: No Panel Informationon 03-10 Estimated GFR (MDRD) Amer 84 mL/min >60 [facility] Work Phone: Comment on above: GFR Calc Estimated GFR (MDRD) Non-Af Amer 69 mL/min >60 [facility] Work Phone: Comment on above: Non- GFR Calc Prostate Specific Antigen Screen 0.19 ng/mL 0.00-4.00 [facility] Work Phone: Comment on above: This test was perfor med using the TPSA assay method for [employer] chemistry system. Values obtained with differentassay methods cannot be used interchangably.When changing PSA assays in the course of monitoring apatient, additional sequential testing should be carriedout to confirm baseline values. Thyroid Stimulating Hormone (TSH) 2.48 uIU/mL 0.358-3.74 [facility] Work Phone: Platelets bldon 03-10-2022 Platelets (Bld) [#/Vol] 143 10*3/uL 150-450 [facility] Work Phone: Serum or plasma albumin tima urement (mass/volume)on 03-10-2022 Albumin [Mass/Vol] 3.4 g/dL 3.2-5.0 [facility] Work Phone: Serum or plasma albumin/glob ulin mass ratioon 03-10-2022 Albumin/Globulin [Mass ratio] 1.1 {ratio} 0.9-2.4 [facility] Work Phone: Serum or plasma calcium tima urement (mass/volume)on 03-10-2022 Calcium [Mass/Vol] 9.2 mg/dL 8.5-10.1 [facility] Work Phone: Serum or plasma creatinine m easurement (mass/volume)on 03-10-2022 Creatinine [Mass/Vol] 1.15 mg/dL 0.70-1.30 [facility] Work Phone: Comment on above: The validity of the calculated GFR & GFRAA in patients over 70 years has not been determined. Clinical correlation is essential. Serum or plasma urea nitroge n measurement (mass/volume)on 03-10-2022 Urea nitrogen [Mass/Vol] 29 mg/dL 7-18 [facility] Work Phone: Thin prep Papanicolaou smear with manual screeningon 03-10-2022 Thin prep Papanicolaou smear with manual screening 50 U/L 15-37 [facility] Work Phone: Thin prep Papanicolaou smear with manual screening 5 5-15 [facility] Work Phone: Encounters Encounter Date Encounter Type Care Provider Facility Start: 03-28-2024 End: 03-28-2024 ambulatory [facility] Facility:[facility] Start: 01-30-2024 End: 01-30-2024 Subsequent hospital visit by physician Beyt Wheat MD Work Phone: [facility] Nuclear Medicine Comment on above: Melanoma (HCC) Start: 01-30-2024 End: 01-30-2024 ambulatory [facility] Start: 05-22-2023 End: 05-22-2023 ambulatory [facility] Work Phone: Start: 05-22-2023 End: 05-22-2023 Patient encounter procedure [facility]-Radiology, [facility] Work Phone: Start: 05-22-2023 End: 05-22-2023 ambulatory [facility] Facility:[facility] Start: 03-23-2023 End: 03-23-2023 ambulatory [facility] Work Phone: Start: 03-23-2023 End: 03-23-2023 Patient encounter procedure [facility]-Laboratory, Phy Office 3rd Flr Start: 03-10-2022 End: 03-10-2022 Patient encounter procedure [facility]-Laboratory Procedures Date Procedure Procedure Detail Performing Clinician Start: 01-30-2024 Lymphatics & lymph n odes imaging Bety Wheat MD Work Phone: Start: 05-22-2023 X-ray of cervical spine Plan of Treatment Date Care Activity Detail Author Start: 08-15-2028 DTaP/Tdap/Td Vaccine s (2 - Td or Tdap) DTaP/Tdap/Td Vaccines (2 - Td or Tdap) [facility] Start: 03-31-2024 Influenza vaccination Influenza Vacc ine (#1) [facility] Start: 03-31-2023 COVID-19 Vaccine ( season) COVID-19 Vaccine ( season) [facility] Start: 2023 RSV Immunization age d 60 or older (1 - 1-dose 60+ series) RSV Immunization aged 60 or older (1 - 1-dose 60+ series) [facility] Start: 03-31-2017 Zoster Vaccines (2 of 3) Zoster Vacc vance (2 of 3) [facility] Start: 03-03-2017 MMR Vaccines (1 of 1 - Standard series) MMR Vaccines (1 of 1 - Standard series) [facility] Start: 1981 Hepatitis C screening Hepatitis C Sc reening [facility] Start: 1975 Depression Screening Depression Scre ening [facility] Start: 1963 Examination of skin Derm Melanoma Sk in Check [facility] Start: 1963 HIV screening HIV Screening [facility] Start: 1963 Lipid panel Lipid Panel [facility] Start: 1963 Screening for malign ant neoplasm of colon [facility] Immunizations Immunization Date Immunization Notes Care Provider Fa cility 03-23-2023 influenza virus vaccine, unspecified formulation Bety Wheat III, MD Work Phone: [facility] 08-15-2018 tetanus toxoid, redu viridiana diphtheria toxoid, and acellular pertussis vaccine, adsorbed [facility] Payers Date Payer Category Payer Self-pay [id number] 2021 Unknown [employer] [id number] 2021-Present [address] [place] [address] Commercial [id number] 2021 Unknown [id number] Unknown [id number] Unknown [id number] Social History Date Type Detail Facility Start: 08-15-2018 Tobacco smoking stat [facility] Unknown if ever smoked [facility] Start: 1965 Sex Assigned At Male [facility] Start: 1965 Sex assigned at Not on file [facility] Gender identity Not on file [facility] Evaluation note Note Date & Type Note Facility Evaluation note No assessment information availa ble [facility] Work Phone: Evaluation note Note Date & Type Note Facility Evaluation note Diagnosis Melanoma (HCC) Melanoma of skin, site unspecified documented in this encounter [facility] Advance Directives No Advanced Directives Records Found Advance Directive Response Recorded Date/ Time Advance Directives No May 4:06pm Living Will No June 11, 2 014 4:06pm Power of Product Development Actuary No June 11, 2014 4:06pm Chief Complaint and Reason for Visit Chief Complaint MUSCLE SPASM Summary Purpose Family History No Family History Records FoundNo Family History Records Found Reason for Referral Specialty Diagnoses / Procedures Referred By Glynn pierce Referred To Contact Radiology Diagnoses Melanoma (HCC) Procedures NM lymphoscintigram Bety Wheat III, MD [address] [place] [address] Referral ID Status Reason Start Date Expiration Date V isits Requested Visits Authorized [id number] Authorized 01/19/2024 01/18/2025 2 2 Additional Source Comments Goals (unrecognized section and content) Goals may be documented in a n alternate sectionGoals may be documented in an alternate sectionGoals may be documented in an alternate section Care Teams (unrecognized sec tion and content) Team Status: Active Member Role Status Dates Dr. Dontrell Swan MD Family Provider Active Dr. Dontrell Swan MD Primary Care Provider Active Team Status: Inactive Member Role Status Dates Dr. Dontrell Swan MD Primary Care Provider, Attending Provider Active Team Status: Inactive Member Role Status Dates Dr. Dontrell Swan MD Primary Care Provi ric, Attending Provider, Referring Provider Active Lpn Rn Hospice Relationship Specialty Start Date End Date Shaan Swan MD [address] [place] [address] PCP - General Geriatric Medicine 01/30/24 (unrecognized sect ion and content) No Status Records FoundNo Status Records Found INFORMATION SOURCE (unrecogn ized section and content) DATE CREATED AUTHOR 01/31/2024 [employer] [facility] DATE CREATED AUTHOR AUTHOR'S ORGANIZ ATION 04/09/2024 [facility] Reason for Visit (unrecogniz ed section and content) Specialty Diagnoses / Procedures Referred By Glynn pierce Referred To Contact Radiology Diagnoses Melanoma (HCC) Procedures NM lymphoscintigram Bety Wheat III, MD [address] [place] [address] Referral ID Status Reason Start Date Expiration Date V isits Requested Visits Authorized [id number] Authorized 01/19/2024 01/18/2025 2 2 FOR RECORDS PERTAINING TO PATIENTS WHO ARE OR HAVE BEEN ENROLLED IN A CHEMICAL DEPENDENCY/SUBSTANCEABUSE PROGRAM, SOME INFORMATION MAY BE OMITTED. This clinical summary was aggregated from multiple sources. Caution should be exercised in using it in the provision of clinical care. This summary normalizes information from multiple sources, and as a consequence, information in this document may materially change the coding, format and clinical context of patient data. In addition, data may be omitted in some cases. CLINICAL DECISIONS SHOULD BE BASED ON THE PRIMARY CLINICAL RECORDS. [employer] provides no warranty or guarantee of the accuracy or completeness of information in this document.
[2025-04-01 18:05] LABS: Xtra Tube Kwok EXTRA TUBE
== END | disposition home or self-care (01) ==
LOC: POLAB3 10:05
PROVIDERS: PCP Family Medicine Geriatric Medicine; Visit Provider Family Medicine Geriatric Medicine
DX: Z12.5 Encounter for screening for malignant neoplasm of prostate (principal); R53.83 Other fatigue
CPT/HCPCS: 36415; 80053; 84153; 84443; 85025; G0103

== ENCOUNTER → 2025-04-03 | Outpatient (CLI) | payer BC, SELFPAY ==
[2025-04-03 14:06] LABS: Anion Gap 12 (5-15); BUN 16 mg/dL (4-19); BUN/Creat Ratio 24.6 RATIO (10-20); Calcium,Total 9.6 mg/dL (7.6-11.0); Carbon Dioxide 23.7 mmol/L (21.0-32.0); Chloride 104 mmol/L (98-108); Glucose 110 mg/dL (70-99); Potassium 4.0 mmol/L (3.3-5.1)
== END | disposition home or self-care (01) ==
LOC: LAB 12:29
PROVIDERS: PCP Family Medicine Geriatric Medicine; Referring Provider Family Medicine Geriatric Medicine; Visit Provider Family Medicine Geriatric Medicine
DX: R53.83 Other fatigue (principal)
CPT/HCPCS: 36415; 80048